=== PATIENT | male | born 2000 | race Caucasian/White ===

== ENCOUNTER 2022-07-15 19:24 | Emergency (ER) | payer OTHER, SELFPAY ==
[2022-07-15 19:32] VITALS: BP 145/86; PULSE 105; RESP 20; TEMP 37.1; O2SAT 100
--- NOTE | 2022-07-15 23:54 | ED.HEATRA ---
HPI - Head Injury General Chief complaint: Head Injury Stated complaint: Head injury Time Seen by Provider: 07/15/22 23:37 Source: patient Mode of arrival: ambulatory Limitations: no limitations History of Present Illness HPI Narrative: This is a 22 year old male that presents to the ER for a laceration to his scalp. Reports he was playing washers and one of his friends accidentally hit him in the head. Denies loss of consciousness. Denies headache, vision changes, vomiting, or numbness. Related Data Allergies Allergy/AdvReac Type Severity Reaction Status Date / Time No Known Allergies Allergy Verified 07/15/22 19:36 Review of Systems Review of Systems: CONSTITUTIONAL: Denies fever EYES: Denies visual changes GASTROINTESTINAL: Denies vomiting NEUROLOGIC: Denies headache, numbness, or weakness. All systems reviewed & are unremarkable except as noted in HPI and below PMFSH Past Medical History Medical History (Updated 07/16/22 @ 00:00 by Margie Lees PA-C) No active medical problems Social History Social History (Updated 07/15/22 @ 23:56 by Margie Lees PA-C) Smoking status: Never smoker Exam Narrative: GENERAL: Well-appearing, well-nourished, and in no acute distress. HEAD: Normocephalic. 1 cm linear superficial laceration to the scalp EYES: EOMI. CHEST: Clear to auscultation. No respiratory distress. No wheezes rales or rhonchi HEART: Regular rate and rhythm. No murmur heard. Normal peripheral pulses. EXTREMITIES: Normal range of motion. No edema. SKIN: Warm, dry, no rash. NEURO: No focal deficits. Alert and oriented x3. Normal gait PSYCH: Normal mood and affect Course Vital Signs Vital signs: Vital Signs Temperature 98.7 F 07/15/22 19:32 Pulse Rate 105 H 07/15/22 19:32 Respiratory Rate 20 07/15/22 19:32 Blood Pressure 145/86 H 07/15/22 19:32 Pulse Oximetry 100 07/15/22 19:32 Oxygen Delivery Room Air 07/15/22 19:32 Temperature 98.7 F 07/15/22 19:32 Pulse Rate 105 H 07/15/22 19:32 Respiratory Rate 20 07/15/22 19:32 Blood Pressure 145/86 H 07/15/22 19:32 Pulse Oximetry 100 07/15/22 19:32 Oxygen Delivery Room Air 07/15/22 19:32 MDM - Head Injury MDM Narrative Medical decision making narrative: Patient presents emergency department for a laceration to his scalp sustained just prior to arrival. Patient's wound was irrigated. He was updated on tetanus. Wound was superficial and did not require any jayashree. Patient educated on further wound care. He was given warnings to return to the ER Critical Care Time Critical Care Time Critical Care Time: No Discharge Plan Discharge Clinical Impression: Laceration Patient Disposition: Home, Self-Care Condition: Stable Instructions: Head Laceration (ED) Additional Instructions: Return to the emergency department if you experience fever, redness or swelling of your wound, abnormal drainage from your wound, or any other symptoms that are concerning to you. Clean with mild soap and water daily Follow-up with your primary care doctor for wound check if needed Follow-up/Referrals: PHYSICIAN,MAIL HANDLER ASSISTANT [Primary Care Provider] -
[2022-07-16] MEDS: TETANUS,DIPHTHERIA,AC PERTUSSIS ADULT (0.5 ML) BOOSTRIX IM (01:47)
[2022-07-16 01:53] VITALS: PULSE 72; RESP 16; O2SAT 98
== END 2022-07-16 02:05 | disposition home or self-care (01) ==
PROVIDERS: Emergency Provider Emergency Medicine
DX: S01.01XA Laceration without foreign body of scalp, initial encounter (principal); Z23 Encounter for immunization; W20.8XXA Other cause of strike by thrown, projected or falling object, initial encounter
CPT/HCPCS: 90471; 90715; 96372; 99282